=== PATIENT | female | born 1935 | race Caucasian/White ===

== ENCOUNTER 2017-04-17 16:15 | Emergency (ER) | payer BC ==
[2017-04-17 16:15] VITALS: BP 187/66; PULSE 70; RESP 16; TEMP 98.5; O2SAT 98
[~2017-04-17 16:15] MED LIST: ADVA250A INH; ALBU17I INH; BISO5TAB5 PO; CRES10TA PO; FLUTI220I INH; FURO1TAB93 PO; PRED50TA PO; PREM1.25 PO; ZITH250T PO
[2017-04-17 16:25] VITALS: RESP 16; O2SAT 100
[2017-04-17] MEDS ORDERED: SODIUM CHLORIDE 0.9% FLUSH 10 ML FLUSH IVF PRN (16:45)
--- NOTE | 2017-04-17 16:52 | PD ---
HPI Chief Complaint: numbness/weakness Time Seen by Provider: 16:26 Travel History International Travel<30 days: No Contact w/Intl Traveler<30days: No Traveled to known affect area: No History of Present Illness HPI The patient is a 81-year-old female who presents to the emergency department via private vehicle for weakness and numbness. The patient is Wolof speaking, therefore, trust manager assistant was used via computer. The patient states her symptoms started at 8 AM, consistent bilateral lower extremity weakness associated with mild numbness. The patient then had mild numbness of her hands. The patient states she walked outside and walked inside and her symptoms resolved. The patient then went outside once again, she once again developed a weakness and fell to the ground. She denies any head injury during the fall. She complains of some generalized weakness and fatigue, does complain of lower extremity weakness with numbness as well as numbness and tingling of the hands. The patient denies any current chest, shortness breath, nausea, vomiting, or abdominal pain. Patient has no previous history of CVA or TIA. PFSH Past Medical History Asthma: Yes Cancer: Yes (SKIN CA) High Cholesterol: Yes Diminished Hearing: No GERD: Yes Pneumonia: Yes Menopausal: Yes Past Surgical History Narrative Surgical skin cancer removal Other Surgery: Yes (SKIN CA REMOVED FROM NOSE) Social History Alcohol Use: Yes (OCCASSIONAL) Tobacco Use: No Substance Use: No Allergies-Medications (Allergen,Severity, Reaction): Coded Allergies: No Known Allergies (Unverified Adverse Reaction, Unknown, 04/17/17) Reported Meds & Prescriptions Reported Meds & Active Scripts Active Reported Rosuvastatin (Rosuvastatin Calcium) 10 Mg Tab 10 Mg PO HS Premarin (Estrogens Conjugated) 1.25 Mg Tab 1.25 Mg PO DAILY Advair Diskus Inh (Fluticasone-Salmeterol Inh) 250-50 Mcg/Blist Aer 2 Puff INH BID Rinse mouth after use. Bisoprolol (Bisoprolol Fumarate) 5 Mg Tab 2.5 Mg PO DAILY Furosemide 40 Mg Tab 40 Mg PO DAILY Ventolin Hfa 18 GM Inh (Albuterol Sulfate) 90 Mcg/Act Aer 2 Puff INH Q4H PRN Review of Systems ROS Limitations: Language Barrier Except as stated in HPI: all other systems reviewed are Neg Cardiovascular: No: Chest Pain or Discomfort Respiratory: No: Shortness of Breath Gastrointestinal: No: Nausea, Vomiting, Abdominal Pain Musculoskeletal: Positive: Weakness Neurologic: Positive: Weakness, Paresthesia, Sensory Disturbance Physical Exam Narrative GENERAL: Awake, alert, pleasant 81-year-old female who appears her stated age is in no acute respiratory distress. SKIN: Focused skin assessment warm/dry. HEAD: Atraumatic. Normocephalic. EYES: Pupils equal and round. 4 mm bilateral and reactive. EOMs are intact. Patient is able to see fingers at a distance of 2 feet without difficulty. ENT: No nasal bleeding or discharge. Mucous membranes pink and moist. NECK: Trachea midline. No JVD. CARDIOVASCULAR: Regular rate and rhythm. No murmur appreciated. RESPIRATORY: No accessory muscle use. Clear to auscultation. Breath sounds equal bilaterally. GASTROINTESTINAL: Abdomen soft, non-tender, nondistended. No rebound tenderness. MUSCULOSKELETAL: No obvious deformities. No clubbing. No cyanosis. No edema. NEUROLOGICAL: Awake and alert. No obvious cranial nerve deficits. Motor grossly within normal limits. Normal speech. According to the trust manager assistant the speech is normal. No drift of the upper or lower extremities. Sensation is symmetric to the arms, legs, and face bilaterally. Smile symmetric. Tongue is midline. Finger to nose is normal. Qpss-os-xvts is normal. PSYCHIATRIC: Appropriate mood and affect; insight and judgment normal. Data Data Last Documented VS Vital Signs Date Time Temp Pulse Resp B/P (MAP) Pulse Ox O2 Delivery O2 Flow Rate FiO2 04/17/17 17:00 67 16 159/58 (91) 100 Room Air 04/17/17 16:15 98.5 Orders Orders Electrocardiogram (04/17/17 16:41) Prothrombin Time / Inr (Pt) (04/17/17 16:41) Act Partial Throm Time (Ptt) (04/17/17 16:41) Complete Blood Count With Diff (04/17/17 16:41) Comprehensive Metabolic Panel (04/17/17 16:41) Creatine Kinase (Cpk) (04/17/17 16:41) Troponin I (04/17/17 16:41) Ct Brain W/O Iv Contrast(Rout) (04/17/17 16:41) Ecg Monitoring (04/17/17 16:41) Iv Access Insert/Monitor (04/17/17 16:41) Oximetry (04/17/17 16:41) Sodium Chloride 0.9% Flush (Ns Flush) (04/17/17 16:45) Magnesium (Mg) (04/17/17 16:41) Ed Discharge Order (04/17/17 18:05) Labs Laboratory Tests Test 04/17/17 17:25 White Blood Count 8.3 TH/MM3 Red Blood Count 4.36 MIL/MM3 Hemoglobin 13.5 GM/DL Hematocrit 39.5 % Mean Corpuscular Volume 90.8 FL Mean Corpuscular Hemoglobin 31.0 PG Mean Corpuscular Hemoglobin Concent 34.2 % Red Cell Distribution Width 13.2 % Platelet Count 238 TH/MM3 Mean Platelet Volume 7.8 FL Neutrophils (%) (Auto) 72.3 % Lymphocytes (%) (Auto) 19.3 % Monocytes (%) (Auto) 5.4 % Eosinophils (%) (Auto) 1.1 % Basophils (%) (Auto) 1.9 % Neutrophils # (Auto) 6.0 TH/MM3 Lymphocytes # (Auto) 1.6 TH/MM3 Monocytes # (Auto) 0.4 TH/MM3 Eosinophils # (Auto) 0.1 TH/MM3 Basophils # (Auto) 0.2 TH/MM3 CBC Comment DIFF FINAL Differential Comment Prothrombin Time 10.2 SEC Prothromb Time International Ratio 0.9 RATIO Activated Partial Thromboplast Time 24.7 SEC Blood Urea Nitrogen 19 MG/DL Creatinine 1.10 MG/DL Random Glucose 137 MG/DL Total Protein 7.1 GM/DL Albumin 3.6 GM/DL Calcium Level 8.4 MG/DL Magnesium Level 2.3 MG/DL Alkaline Phosphatase 87 U/L Aspartate Amino Transf (AST/SGOT) 22 U/L Alanine Aminotransferase (ALT/SGPT) 19 U/L Total Bilirubin 0.3 MG/DL Sodium Level 140 MEQ/L Potassium Level 3.8 MEQ/L Chloride Level 104 MEQ/L Carbon Dioxide Level 28.1 MEQ/L Anion Gap 8 MEQ/L Estimat Glomerular Filtration Rate 48 ML/MIN Total Creatine Kinase 101 U/L Troponin I LESS THAN 0.02 NG/ML MDM Medical Decision Making Medical Screen Exam Complete: Yes Emergency Medical Condition: Yes Medical Record Reviewed: Yes Interpretation(s) EKG reveals normal sinus rhythm with a rate of 69. Nonspecific ST-T wave changes. CT of the brain reveals negative trauma study Last Impressions Head CT 04/17/17 1641 Signed Impressions: Service Date/Time: Monday, April 17, 2017 17:06 - CONCLUSION: Negative trauma study. Cordell Rashid MD Laboratory Tests Test 04/17/17 17:25 White Blood Count 8.3 TH/MM3 Red Blood Count 4.36 MIL/MM3 Hemoglobin 13.5 GM/DL Hematocrit 39.5 % Mean Corpuscular Volume 90.8 FL Mean Corpuscular Hemoglobin 31.0 PG Mean Corpuscular Hemoglobin Concent 34.2 % Red Cell Distribution Width 13.2 % Platelet Count 238 TH/MM3 Mean Platelet Volume 7.8 FL Neutrophils (%) (Auto) 72.3 % Lymphocytes (%) (Auto) 19.3 % Monocytes (%) (Auto) 5.4 % Eosinophils (%) (Auto) 1.1 % Basophils (%) (Auto) 1.9 % Neutrophils # (Auto) 6.0 TH/MM3 Lymphocytes # (Auto) 1.6 TH/MM3 Monocytes # (Auto) 0.4 TH/MM3 Eosinophils # (Auto) 0.1 TH/MM3 Basophils # (Auto) 0.2 TH/MM3 CBC Comment DIFF FINAL Differential Comment Prothrombin Time 10.2 SEC Prothromb Time International Ratio 0.9 RATIO Activated Partial Thromboplast Time 24.7 SEC Blood Urea Nitrogen 19 MG/DL Creatinine 1.10 MG/DL Random Glucose 137 MG/DL Total Protein 7.1 GM/DL Albumin 3.6 GM/DL Calcium Level 8.4 MG/DL Magnesium Level 2.3 MG/DL Alkaline Phosphatase 87 U/L Aspartate Amino Transf (AST/SGOT) 22 U/L Alanine Aminotransferase (ALT/SGPT) 19 U/L Total Bilirubin 0.3 MG/DL Sodium Level 140 MEQ/L Potassium Level 3.8 MEQ/L Chloride Level 104 MEQ/L Carbon Dioxide Level 28.1 MEQ/L Anion Gap 8 MEQ/L Estimat Glomerular Filtration Rate 48 ML/MIN Total Creatine Kinase 101 U/L Troponin I LESS THAN 0.02 NG/ML Differential Diagnosis Differential diagnosis includes CVA, TIA, hypercalcemia, hypocalcemia, hyperkalemia, hypokalemia, syringomyelia. Narrative Course IV was established, labs are drawn and sent, and the patient was placed on cardiac telemetry monitoring and continuous pulse oximetry monitoring. EKG was ordered and interpreted. Stat CT the brain was obtained. Electrolytes were sent to lab. CT of the brain was negative. The patient had a family friend come back who is able to translate at bedside, per her request. The patient has been under a lot of stress recently, states she is having difficulties with her place of residence he in [place] and her good friends recently . The patient has been under a lot of stress and feels like her heart is beating fast at times and feels anxious. The patient is worried that her stress is causing her current symptoms. The patient was monitored on cardiac telemetry monitoring, was in a normal sinus rhythm, there is no evidence of arrhythmias or ectopy. Labs reveal a creatinine 1.1. Glucose is mildly elevated at 137, calcium is minimally low at 8.4. Electrolytes are unremarkable. Patient was reevaluated and currently has no symptoms. I do not believe the patient is having a CVA, she has generalized weakness the lower extremities with these intermittent paresthesias. She is nonfocal on exam and there is no weakness demonstrated on exam. She was reexamined and extension of the knees is 5 out of 5, plantar flexion 5 over 5, hip flexion 5 out of 5. Celebrity Manager strength is 5 out of 5 bilaterally. Sensation was intact in the upper and lower extremities. Patient is stable for outpatient follow-up. I had a discussion with the patient when I went over her labs and CT results. The patient states she is under a lot of stress, per the trust manager assistant friend at bedside, because the of her sister and another close friend is about to . She states she is under a lot of anxiety and is requesting something for anxiety. I had a discussion regarding the possibility of Ativan at night to help her sleep, however, did advise her could be, addictive and not to take during the day. Diagnosis Primary Impression: Generalized weakness Additional Impression: Stress reaction Patient Instructions: General Instructions Additional Instructions: Please provide the patient a copy of her CT results and lab results at discharge. Follow-up with a primary physician. Return if symptoms worsen or progress. Med/Other Pt SpecificInfo: Prescription(s) given, No Change to Meds Scripts Lorazepam (Ativan) 0.5 Mg Tab 0.5 MG PO HS Y for ANXIETY AND/OR AGITATION, #10 TAB 0 Refills Prov: Teja Fernando MD 04/17/17 Disposition: 01 DISCHARGE HOME Condition: Stable Teja Fernando MD Apr 17, 2017 16:52
[2017-04-17 17:00] VITALS: BP 159/58; PULSE 67; RESP 16; O2SAT 100
--- NOTE | 2017-04-17 17:16 | RADRPT ---
EXAM DATE/TIME: 04/17/2017 17:06 [facility] COMPARISON: No previous studies available for comparison. INDICATIONS : Weakness since this morning. Fall. Evaluate for cerebrovascular accident. RADIATION DOSE: 60.32 CTDIvol (mGy) MEDICAL HISTORY : Cardiovascular disease. Gastroesophageal reflux disease. SURGICAL HISTORY : None. ENCOUNTER: Initial ACUITY: 1 day PAIN SCALE: 0/10 LOCATION: cranial TECHNIQUE: Multiple contiguous axial images were obtained of the head. Using automated exposure control and adj ustment of the mA and/or kV according to patient size, radiation dose was kept as low as reasonably a chievable to obtain optimal diagnostic quality images. DICOM format image data is available electro nically for review and comparison. FINDINGS: CEREBRUM: The ventricles are normal for age. No evidence of midline shift, mass lesion, hemorrhage or acute in farction. No extra-axial fluid collections are seen. POSTERIOR FOSSA: The cerebellum and brainstem are intact. The 4th ventricle is midline. The cerebellopontine angle i s unremarkable. EXTRACRANIAL: The visualized portion of the orbits is intact. SKULL: The calvaria is intact. No evidence of skull fracture. CONCLUSION: Negative trauma study. Cordell Rashid MD on April 17, 2017 at 17:14 Board Certified Radiologist. This report was verified electronically.
[2017-04-17 17:40] LABS: BASOPHIL # 0.2 TH/MM3 (0-0.2); BASOPHIL % 1.9 % (0.0-2.0); EOSINOPHIL # 0.1 TH/MM3 (0-0.4); EOSINOPHIL % 1.1 % (0.0-4.0); HEMATOCRIT 39.5 % (35.0-46.0); HEMO FLAGS DIFF FINAL; LYMPH % 19.3 % (9.0-44.0); LYMPHOCYTE # 1.6 TH/MM3 (1.0-4.8); MEAN CELL VOLUME 90.8 FL (80.0-100.0); MEAN CORPUSCULAR HGB CONC 34.2 % (32.0-36.0); MONO % 5.4 % (0.0-8.0); NEUT % 72.3 % (16.0-70.0); PLATELET COUNT 238 TH/MM3 (150-450); RED BLOOD COUNT 4.36 MIL/MM3 (4.00-5.30); RED CELL DISTRIBUTION WIDTH 13.2 % (11.6-17.2); WHITE BLOOD COUNT 8.3 TH/MM3 (4.0-11.0)
[2017-04-17 17:48] LABS: CHLORIDE 104 MEQ/L (98-107); POTASSIUM 3.8 MEQ/L (3.5-5.1); SODIUM (NA) 140 MEQ/L (136-145)
[2017-04-17 17:52] LABS: ANION GAP 8 MEQ/L (5-15); BICARBONATE 28.1 MEQ/L (21.0-32.0); BLOOD UREA NITROGEN 19 MG/DL (7-18); MAGNESIUM 2.3 MG/DL (1.5-2.5)
[2017-04-17 17:54] LABS: APTT (PATIENT) 24.7 SEC (24.3-30.1); INTERNATIONAL NORMALIZED RATIO 0.9 RATIO; PROTHROMBIN TIME - PATIENT 10.2 SEC (9.8-11.6)
[2017-04-17 17:55] LABS: ALT (GPT) 19 U/L (10-53); AST (GOT) 22 U/L (15-37)
[2017-04-17 17:56] LABS: GLOMERULAR FILTRATION RATE 48 ML/MIN (>89)
[2017-04-17 17:57] LABS: TOTAL BILIRUBIN ADULT 0.3 MG/DL (0.2-1.0)
[2017-04-17 17:58] LABS: ALKALINE PHOSPHATASE 87 U/L (45-117); CREATINE KINASE 101 U/L (26-192)
[2017-04-17] MEDS ORDERED: VENTAER INH (18:04)
[2017-04-17] MEDS ORDERED: FURO40TA PO (18:04)
[2017-04-17] MEDS ORDERED: BISO5TAB5 PO (18:04)
[2017-04-17] MEDS ORDERED: ADVA250A INH (18:04)
[2017-04-17] MEDS ORDERED: ROSU1TAB6 PO (18:04)
[2017-04-17] MEDS ORDERED: ESTR1.25 PO (18:04)
[2017-04-17] MEDS ORDERED: LORA-392 PO (18:11)
[2017-04-17 18:32] VITALS: BP 155/80
--- NOTE | 2017-04-18 09:24 | EKG ---
Date Performed: 04/17/2017 Time Performed: 16:54:57 PTAGE: 81 years EKG: Sinus rhythm NONSPECIFIC ST & T-WAVE ABNORMALITY Compared to prior tracing no significant change BORDERLINE ECG PREVIOUS TRACING : 06/14/2013 11.39 DOCTOR: Austin Ayala Interpretating Date/Time 04/18/2017 09:22:20
== END 2017-04-17 19:16 | disposition home or self-care (01) ==
LOC: PHED 16:15
DX: R53.1 Weakness (principal); F43.9 Reaction to severe stress, unspecified; J45.909 Unspecified asthma, uncomplicated; E78.00 Pure hypercholesterolemia, unspecified; K21.9 Gastro-esophageal reflux disease without esophagitis
CPT/HCPCS: 70450; 80053; 82550; 83735; 84484; 85025; 85610; 85730; 93005; 99284